=== PATIENT | male | born 1985 | race African-American/Black ===

== ENCOUNTER 2020-05-29 13:05 | Emergency (ER) | payer MEDICAID ==
[~2020-05-29] VITALS: Ht 416.6 cm; Wt 10.2 kg
[2020-05-29 13:22] VITALS: BP 145/103; Ht 416.6 cm; Wt 10.2 kg
== END 2020-05-29 14:22 | disposition home or self-care (01) ==
LOC: ED 13:05
DX: K04.7 Periapical abscess without sinus (principal); Z98.890 Other specified postprocedural states